=== PATIENT | male | born 1945 | race Caucasian/White ===

== ENCOUNTER → 2017-10-29 | Day surgery (SDC) | payer OTHER ==
[2017-10-22 11:54] VITALS: BMI 23.0
[~2017-10-29] VITALS: Ht 172.7 cm; Wt 70.0 kg
[~2017-10-29] MED LIST: ASPECOTC PO; ATOR-24 PO; BRIM0.1S OP; CALC500T72; CHOL100027 PO; LIDOCAINE HCL 2% 2 ML VIAL (20MG/ML) ONE; NXM/40 PO; PROPOFOL IV EMULSION 10 MG/ML 20 ML VIAL ONE; REDCAP4 PO; SUCR5SUS PO; TURM1CAP4 PO
[2017-10-29 12:26] VITALS: Ht 172.7 cm; Wt 70.0 kg
--- NOTE | 2017-10-29 13:12 | Endo History and Physical ---
History & Physical Date of Service: October 29, 2017. Chief Complaint: BARRETTS ESOPHAGUS Referring Physician: DR. 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 Past Surgical History Hx Cardiac Surgery: Yes (HEART CATH 05/15, 05/27/17 TRIPLE BYPASS-[facility]) Hx Internal Defibrillator: No Hx Pacemaker: No Hx Abdominal Surgery: Yes (HERNIA X3) Hx of Implantable Prosthesis: No Hx Post-Op Nausea and Vomiting: No Hx Cancer Surgery: No Hx Thoracic Surgery: No Hx Orthopedic: Yes (BACK HERNIATED DISC, ANKLE SURGERY 1995) Hx Urinary Tract Surgery: No Family History None Social History Smoking Status: Former Smoker Hx Substance Use: No Hx Alcohol Use: Yes (WINE A GLASS A DAY) Allergies Coded Allergies: No Known Allergies (Unverified , 10/29/17) Current Medications Reported Home Medications Medications Dose Route/Sig Max Daily Dose Days Date Category Aspirin 325 Mg Tab 325 Mg PO QD 10/29/17 Reported Turmeric (Turmeric (Curcuma Longa)) 500 Mg Cap 1 Tab PO DAILY 10/22/17 Reported Red Yeast Rice Extract 600 Mg Cap 1 Tab PO DAILY 10/22/17 Reported Lipitor (Atorvastatin Calcium) 40 Mg Tab 1 Tab PO DAILY 30 10/22/17 Reported Alphagan P Oph (Brimonidine Tartrate) 0.1 % Narcisa 1 Drop OP 05/04/17 Reported Nexium (Esomeprazole Magnesium) 40 Mg Capcr 40 Mg PO DAILY 05/04/17 Reported Carafate (Sucralfate) 1 Gm/10 Ml Susp 1 Gm PO ACHS 05/04/17 Reported Vitamin C (Calcium Ascorbate) 500 Mg Tab 05/04/17 Reported Vitamin D 1000 Unit (Cholecalciferol) 1,000 Unit Cap 2,000 Inter.unit PO DAILY 05/04/17 Reported Vital Signs Weight (Kilograms): 70.00 Height (Feet): 5 Height (Inches): 8 Date Time Temp Pulse Resp B/P (MAP) Pulse Ox O2 Delivery O2 Flow Rate FiO2 10/29/17 12:35 37.0 50 18 130/74 (92) 94 Room Air Physical Exam General Appearance: WD/WN, no apparent distress Respiratory/Chest: Auscultation: breath sounds normal Cardiovascular: Heart Auscultation: RRR Abdomen: Bowel Sounds: normal Inspection & Palpation: soft, non-distended, no tenderness, guarding & rebound Assessment and Plan Assessment: 72 yo CM who presents for 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 Plan: Proceed with EGD.
--- NOTE | 2017-10-29 13:53 | Discharge Instructions ---
Endoscopy Patient Instructions Date / Procedure(s) Performed October 29, 2017. EGD Allergy Information Coded Allergies: No Known Allergies (Unverified , 10/29/17) Discharge Date / Findings October 29, 2017. Houston's esophagus s/p biopsies Hiatal hernia Medication Instructions Stopped Medication(s): ASA S/P CABG 3 VESSAL OK to resume all medications today as prescribed Reported Home Medications Medications Dose Route/Sig Max Daily Dose Days Date Category Aspirin 325 Mg Tab 325 Mg PO QD 10/29/17 Reported Turmeric (Turmeric (Curcuma Longa)) 500 Mg Cap 1 Tab PO DAILY 10/22/17 Reported Red Yeast Rice Extract 600 Mg Cap 1 Tab PO DAILY 10/22/17 Reported Lipitor (Atorvastatin Calcium) 40 Mg Tab 1 Tab PO DAILY 30 10/22/17 Reported Alphagan P Oph (Brimonidine Tartrate) 0.1 % Narcisa 1 Drop OP 05/04/17 Reported Nexium (Esomeprazole Magnesium) 40 Mg Capcr 40 Mg PO DAILY 05/04/17 Reported Carafate (Sucralfate) 1 Gm/10 Ml Susp 1 Gm PO ACHS 05/04/17 Reported Vitamin C (Calcium Ascorbate) 500 Mg Tab 05/04/17 Reported Vitamin D 1000 Unit (Cholecalciferol) 1,000 Unit Cap 2,000 Inter.unit PO DAILY 05/04/17 Reported Provider Instructions Activity Restrictions - No exercising or heavy lifting for 24 hours. - Do not drink alcohol the day of the procedure. - Do not drive a car or operate machinery until the day after the procedure. - Do not make any important decisions or sign important papers in 24 hours after the procedure. Following Day: - Return to full activity which may include returning to work/school. Diet Start your diet with liquids and light foods (jello, soup, juice, toast). Then eat your usual diet if not nauseated. Treatment For Common After Affects For mild abdominal pain, bloating, or excessive gas: - Rest - Eat lightly - Lie on right side Follow-Up Information Follow-up with DR. GILLIAM as scheduled Anesthesia Information What You Should Know You have had a procedure that required some medicine to reduce anxiety and discomfort. This treatment is called moderate sedation. After receiving the treatment, you may be sleepy, but you will be able to breathe on your own. The effects of the treatment may last for several hours. Follow these instructions along with Activity/Diet recommendations noted above: * Do NOT do anything where dizziness or clumsiness would be dangerous. * Rest quietly at home today, then you can be up and about tomorrow. * Have a responsible person stay with you the rest of today. * You may have had an I.V. today. If so, you may take the dressing off later today. Recommendations Call your doctor if: * Trouble breathing * Continuous vomiting for more than 24 hours * Temperature above 101 degrees * Severe abdominal pain or bloating * Pain not relieved by pain medicine ordered * There is increased drainage or redness from any incision * A large amount of rectal bleeding greater than 2-3 tablespoons. (If you had a polyp/s removed or have hemorrhoids, a small amount of blood - from the rectum is to be expected.) * You have any unanswered questions or concerns. IN THE EVENT OF A SERIOUS EMERGENCY, GO TO THE NEAREST EMERGENCY ROOM Your discharge instructions were prepared by provider Markie Conde. Patient Instructions Signature Page Bhavik Harden Patient (or Guardian) Signature/Date: I have read and understand the instructions given to me by my caregivers. Caregiver/RN/Doctor Signature/Date: The above-named patient and/or guardian has received patient instructions on this date. + Original Patient Signature Page (only) stays with chart. Please make copy for patient.
--- NOTE | 2017-10-29 13:55 | GI REPORT ---
Patient Name: Bhavik Harden Procedure Date: 10/29/2017 12:54 PM Date of : 1945 Admit Type: Outpatient Age: 72 Gender: Male Attending MD: Markie Conde DO Procedure: Upper GI endoscopy Providers: Markie Conde DO Referring MD: Assigned No Doctor, Ari Rahman Indications: Follow-up of Houston's esophagus Medicines: Monitored Anesthesia Care Complications: No immediate complications. Estimated Blood Loss: Estimated blood loss: none. Procedure: Pre-Anesthesia Assessment: - Prior to the procedure, a History and Physical was performed, and patient medications and allergies were reviewed. The patient's tolerance of previous anesthesia was also reviewed. The risks and benefits of the procedure and the sedation options and risks were discussed with the patient. All questions were answered, and informed consent was obtained. Prior Anticoagulants: The patient has taken aspirin, last dose was 1 day prior to procedure. ASA Grade Assessment: III - A patient with severe systemic disease. After reviewing the risks and benefits, the patient was deemed in satisfactory condition to undergo the procedure. After obtaining informed consent, the endoscope was passed under direct vision. Throughout the procedure, the patient's blood pressure, pulse, and oxygen saturations were monitored continuously. The scope was introduced through the mouth, and advanced to the second part of duodenum. The upper GI endoscopy was accomplished without difficulty. The patient tolerated the procedure well. Findings: There were esophageal mucosal changes consistent with long-segment Houston's esophagus present at the gastroesophageal junction. The maximum longitudinal extent of these mucosal changes was 3 cm in length. Mucosa was biopsied with a cold forceps for histology. One specimen bottle was sent to pathology. A small hiatal hernia was present. The examined duodenum was normal. Impression: - Esophageal mucosal changes consistent with long-segment Houston's esophagus. Biopsied. - Small hiatal hernia. - Normal examined duodenum. Recommendation: - Resume previous diet. - Continue present medications. - Await pathology results. - Return to primary care physician as previously scheduled. Markie Conde DO 10/29/2017 1:54:32 PM This report has been signed electronically. Note Initiated On: 10/29/2017 12:54 PM Number of Addenda: 0 I attest to the content of the Intraoperative Record and orders documented therein, exceptions below {[id number]}
--- NOTE | 2017-10-29 13:57 | Anesthesiology Progress Note ---
Anesthesia Post Op Note Date & Time October 29, 2017 at 13:57 Vital Signs Vital Signs Past 12 Hours Date Time Temp Pulse Resp B/P (MAP) Pulse Ox O2 Delivery O2 Flow Rate FiO2 10/29/17 13:40 52 20 106/53 (70) 96 Room Air 10/29/17 12:35 37.0 50 18 130/74 (92) 94 Room Air Notes Mental Status: alert / awake / arousable, participated in evaluation Pt Amnestic to Procedure: Yes Nausea / Vomiting: adequately controlled Pain: adequately controlled Airway Patency, RR, SpO2: stable & adequate BP & HR: stable & adequate Hydration State: stable & adequate Anesthetic Complications: no major complications apparent
[2017-10-29 14:10] VITALS: BP 133/70; PULSE 52; O2SAT 98
== END | disposition home or self-care (01) ==
LOC: C.GI 12:06
PROVIDERS: ATTEND Internal Medicine
DX: Z09 Encounter for follow-up examination after completed treatment for conditions other than malignant neoplasm (principal); K22.70 Barrett's esophagus without dysplasia; K44.9 Diaphragmatic hernia without obstruction or gangrene; I25.10 Atherosclerotic heart disease of native coronary artery without angina pectoris; Z86.73 Personal history of transient ischemic attack (TIA), and cerebral infarction without residual deficits; Z98.890 Other specified postprocedural states; Z87.891 Personal history of nicotine dependence; Z79.899 Other long term (current) drug therapy